=== PATIENT | male | born 1960 | race Caucasian/White ===

== ENCOUNTER 2016-12-08 20:06 | Inpatient (IN) | payer OTHER ==
--- NOTE | 2016-12-08 20:13 | PDOC ---
History of Present Illness - General History Source: Patient, Family, Old Records Exam Limitations: No Limitations - History of Present Illness Initial Comments: 12/08/16 20:26 The patient is a 56 year old male, accompanied by children, with a significant past medical history of HTN, HLD, CAD and asthma, BIBA to the emergency department with left sided weakness just prior to presenting. The patient states that he was in his normal state of health today before onset of leg weakness. The patient states that he fell 3 time secondary to his leg weakness with a brief loss of consciousness. The patient notes that since his loss of consciousness he has been unable to lift his left arm. The patient has had a few alcoholic beverages today. <Wilder Cm - Last Filed: 12/09/16 00:55> - General History Source: Patient <Karthik Ray - Last Filed: 12/09/16 20:46> - General Stated Complaint: WEAKNESS Time Seen by Provider: 12/08/16 20:13 NIH Stroke Scale - Last Known Well Date/Time & Onset Date Last Known Well: 12/08/16 Time Last Known Well: 20:00 - Initial Evaluation Level of consciousness: Alert Ask patient the month and their age: Answers both correctly Ask patient to open & close eyes; make fist and let go: Obeys both correctly Best gaze (horizontal eye movement): Normal Visual field testing: No visual field loss Facial paresis (Show teeth/raise eyebrows/close eyes tight): Minor paralysis ( flattened nasolabial fold, asymmetry on smiling) Motor Function: Left Arm: No movement Motor Function: Right Arm: Normal (extends arm 90 (or 45) degrees for 10 seconds without drift Motor Function: Left Leg: Normal (extends leg 30 degrees for 5 seconds without drift) Motor Function: Right Leg: Normal (extends leg 30 degrees for 5 seconds without drift) Limb Ataxia: Present in one limb Sensory(Use pinprick test arms,legs,trunk,face/side to side): Normal Best language (Describe picture, name items, read sentences): No Aphasia Dysarthria (read several words): Normal articulation Extinction and Inattention: No abnormality - Total Score NIH Stroke Scale Score: 6 <Karthik Ray - Last Filed: 12/09/16 20:46> tPA Exclusion Checklist 0-3hr - Time Elapsed Date last known well: 12/08/16 Time last known well: 20:00 Elaspsed time: 1 Day(s) and 0 Hour(s) and 46 Minutes - Exclusion Criteria 0-3hr SBP greater than 185 or DBP greater than 110mmHg despite tx: No Recent IC/spinal surgery,head trauma or stroke w/in last 3mo: No Hx of previous IC hemorrhage, IC neoplasm, AVM or aneurysm: No Active internal bleeding: No Blding diathesis(low plt ct, inc PTT,INR>1.7 or use of NOAC): No Symptoms suggest subarachnoid hemorrhage: No CT demonstrates multilobar infarct(>1/3 cerebral hemiphere): No Arterial puncture at noncompressible site in previous 7 days: No Blood glucose concentration less than 50mg/dL (2.7mmol/L): No - Relative Exclusion Criteria 0-3h Life expectancy <1yr/severe co-morbid illness/[employer] on admit: No : No Patient/family refused: No Rapid improvement: Yes Stroke severity too mild: No Recent acute CO (w/in previous 3 months): No Seizure at onset with postictal residual neuro impairments: No Major surgery or serious trauma w/in previous 14 days: No Recent GI or hemorrhage (w/in previous 21 days): No <Karthik Ray - Last Filed: 12/09/16 20:46> Past History <Wilder Cm - Last Filed: 12/09/16 00:55> - Past Medical History Asthma: Yes Hypercholesterolemia: Yes - Surgical History Appendectomy: Yes - Psycho/Social/Smoking Cessation Hx Suicidal Ideation: No Smoking History: Current every day smoker Number of Cigarettes Smoked Daily: 20 'Breaking Loose' booklet given: 03/27/15 Hx Alcohol Use: Yes (SOCIAL) Drug/Substance Use Hx: No Substance Use Type: None <Karthik Ray - Last Filed: 12/09/16 20:46> - Past Medical History Allergies/Adverse Reactions: Allergies Allergy/AdvReac Type Severity Reaction Status Date / Time shellfish derived Allergy Vomiting Verified 12/08/16 20:37 SEAFOOD AdvReac Vomiting Uncoded 12/08/16 20:37 Home Medications: Ambulatory Orders NK [No Known Home Medication] 12/08/16 Review of Systems - Review of Systems Able to Perform ROS?: Yes Comments:: 12/08/16 20:27 CONSTITUTIONAL: Absent: fever, chills, diaphoresis, loss of appetite HEENT: Absent: rhinorrhea, nasal congestion, throat pain, throat swelling, difficulty swallowing, mouth swelling, ear pain, eye pain, visual Changes CARDIOVASCULAR: Absent: chest pain, syncope, palpitations, irregular heart rate, lightheadedness , peripheral edema RESPIRATORY: Absent: cough, shortness of breath, dyspnea with exertion, orthopnea, wheezing, stridor, hemoptysis GASTROINTESTINAL: Absent: abdominal pain, abdominal distension, nausea, vomiting, diarrhea, constipation, melena, hematochezia GENITOURINARY: Absent: dysuria, frequency, urgency, hesitancy, hematuria, flank pain, genital pain MUSCULOSKELETAL: Present: Inability to lift left arm Absent: myalgia, arthralgia, joint swelling SKIN: Absent: rash, itching, pallor HEMATOLOGIC/IMMUNOLOGIC: Absent: easy bleeding, easy bruising, lymphadenopathy, frequent infections ENDOCRINE: Absent: unexplained weight gain, unexplained weight loss, heat intolerance, cold intolerance NEUROLOGIC: Present: Loss of consciousness , leg weakness. Absent: headache, dizziness, bladder or bowel incontinence PSYCHIATRIC: Absent: anxiety, depression, suicidal or homicidal ideation, hallucinations. <Wilder Cm - Last Filed: 12/09/16 00:55> *Physical Exam - Vital Signs Last Vital Signs Temp Pulse Resp BP Pulse Ox 102 H 18 162/87 97 12/08/16 20:11 12/08/16 20:11 12/08/16 20:11 12/08/16 20:11 - Physical Exam Comments: 12/08/16 20:27 GENERAL: Well developed, well nourished. Awake and alert. In no acute distress. HEENT: (+) Atraumatic. PERRLA, EOMI. No conjunctival pallor. Sclerae are non-icteric. Moist mucous membranes. Oropharynx is clear.Left sided facial droop NECK: Supple. Full ROM. No JVD. Carotid pulses 2+ and symmetric, without bruits. No thyromegaly. No lymphadenopathy. CARDIOVASCULAR: Regular rate and rhythm. No murmurs, rubs, or gallops. Distal pulses are 2+ and symmetric. PULMONARY: No evidence of respiratory distress. Lungs clear to auscultation bilaterally. No wheezing, rales or rhonchi. ABDOMINAL: Soft. Non-tender. Non-distended. No rebound or guarding. No organomegaly. Normoactive bowel sounds. MUSCULOSKELETAL Normal range of motion at all joints. No bony deformities or tenderness. No CVA tenderness. EXTREMITIES: No cyanosis. No clubbing. No edema. No calf tenderness. SKIN: Warm and dry. Normal capillary refill. No rashes. No jaundice. NEUROLOGICAL: (+) Alert, awake, appropriate. Left facial droop, left upper extremity hemiplegia PSYCHIATRIC: Cooperative. Good eye contact. Appropriate mood and affect. <Wilder Cm - Last Filed: 12/09/16 00:55> Heart Score/ECG Review - ECG Impressions Comment:: 12/08/16 20:44 Sinus Tachycardia. Possible left atrial enlargement. Borderline ECG. <Wilder Cm - Last Filed: 12/09/16 00:55> ED Treatment Course - LABORATORY CBC & Chemistry Diagram: 12/08/16 20:13 12/08/16 20:30 - RADIOLOGY Radiograph Interpretation: 12/08/16 21:05 Referring Physician: Karthik Rae The finding of possible cortical edema in the right parietal lobe was discussed with Dr. Ray at 8 :40 PM December 08, 2016. THIS DOCUMENT HAS BEEN ELECTRONICALLY SIGNED Courtney Luong MD 12/08/2016 20:46 KEL [place]. Please call Imaging Asset Protection Detective [phone] ([phone]) with questions. PREVIOUS REPORT: Referring Physician : Karthik Ray Patient Name: Wallace Rae THIS IS A PRELIMINARY REPORT FROM [facility] EXAM: CT head without contrast IMAGES: 136 DATE OF SERVICE: 2016-12-08 20:18:53.0 HISTORY:Rule out CVA, TIA syncopal episode with subsequent left upper extremity weakness and left facial droop. COMPARISON: None. FINDINGS: 1. Visualization of detail in portions of the brain is limited by motion artifact. 2. It is unclear whether or not the appearance of a focus of cortical edema in the right parietal lobe is real or is secondary to artifact. There is no evidence of intracranial hemorrhage or significant mass effect. 2. The ventricles are normal size. 3. The visualized portions of the orbits, paranasal and mastoid sinuses are notable for partial opacification of the right mastoid sinus, complete opacification of mastoid sinus and middle ear and moderate bilateral ethmoid sinus mucosal thickening. The finding of possible cortical edema in the right parietal lobe was discussed with Dr. Ray at 8:40 PM December 08, 2016. THIS DOCUMENT HAS BEEN ELECTRONICALLY SIGNED Courtney Luong MD 12/08/2016 20:46 EST MGerald Please call Imaging Asset Protection Detective [phone] ([phone]) with questions. End of Report Content Siebel Crm Developer: ([email or web address]) Report Date : 12/08/2016 20:18:00 Report Status: Preliminary Begin of Report Content Referring Physician: Karthik Ray Patient Name: Wallace Rae THIS IS A PRELIMINARY REPORT FROM [facility] EXAM: CT head without contrast IMAGES: 136 DATE OF SERVICE: 2016-12-08 20:18 :53.0 HISTORY:Rule out CVA, TIA syncopal episode with subsequent left upper extremity weakness and left facial droop. COMPARISON: None. FINDINGS: 1. Visualization of detail in portions of the brain is limited by motion artifact. 2. It is unclear whether or not the appearance of a focus of cortical edema in the right parietal lobe is real or is secondary to artifact. There is no evidence of intracranial hemorrhage or significant mass effect. 2. The ventricles are normal size. 3. The visualized portions of the orbits, paranasal and mastoid sinuses are notable for partial opacification of the right mastoid sinus, complete opacification of mastoid sinus and middle ear and moderate bilateral ethmoid sinus mucosal thickening. The finding of possible cortical edema in the right parietal lobe was discussed with Dr. Ray at 8:40 PM December 08, 2016. THIS DOCUMENT HAS BEEN ELECTRONICALLY SIGNED Courtney Luong MD 12/08/2016 20:46 EST 12/09/16 00:55 EXAM DATE AND TIME: 2016-12-08 23:25:22.0 REASON FOR EXAM: Weakness rule out stroke COMPARISON: CT brain December 08, 2016 at 8:22 PM FINDINGS: The suspected infarct is not visible on CT at this time. Infarct less than 6 hours old may not be detectable. There is no hemorrhage. No mass. No shift or herniation. Osseous structures are intact. Again note is made of opacification of left mastoid air cells, probably granulation tissue but check to make sure there is no inflammation/tenderness in this area. THIS DOCUMENT HAS BEEN ELECTRONICALLY SIGNED Waldemar Chandra MD 12/08/2016 23:46 EST <Wilder Cm - Last Filed: 12/09/16 00:55> - LABORATORY CBC & Chemistry Diagram: 12/08/16 20:13 12/08/16 20:30 <Karthik Ray - Last Filed: 12/09/16 20:46> Medical Decision Making - Medical Decision Making 12/08/16 20:46 Patient is now able to move his left upper extremity. 12/08/16 20:[address] Henry placed. Awaiting call back. Dr. Jo called into ED and requested a consult from Dr. Downey. Dr. Segura is maori liaison adviser. Dr. Segura Called into the ED and said he will come see the patient. 12/08/16 22:53 Patient's left facial droop and left upper extremity weakness has presented again 12/08/16 22:54 Dr. Segura call connect after patient's symptoms present again. Case and plan discussed. <Wilder Cm - Last Filed: 12/09/16 00:55> - Medical Decision Making 12/08/16 21:[address] Segura covering for Dr. Downey. Pt is not a TPA candidate. Stated also that pt should only receive Aspirin at this time and be admitted for further evaluation. 12/09/16 00:09 Dr. Segura present to evaluate pt. Symptoms of left side facial droop and LUE hemiplegia return and became more pronounced. Pt started Cardene drip. 12/09/16 01:55 Pt symptoms improved on Cardene drip. BP better controlled. CTA of brain and neck are negative for vascular dissection. Pt going to ICU 12/09/16 20:46 Dr. Ray: The scribe's documentation has been prepared under my direction and personally reviewed by me in its entirery. I confirm that the note above accurately reflects all work, treatment, procedures, and medical decision making performed by me. <Karthik Ray - Last Filed: 12/09/16 20:46> *DC/Admit/Observation/Transfer - Attestations Scribe Attestion: 12/08/16 20:27 Documentation prepared by Wilder Cm, acting as medical secretary receptionist for Karthik Ray DO. <Wilder Cm - Last Filed: 12/09/16 00:55> - Discharge Dispostion Admit: Yes <Karthik Ray - Last Filed: 12/09/16 20:46> Diagnosis at time of Disposition: CAD (coronary artery disease), Malignant hypertension TIA (transient ischemic attack) Qualifiers: Transient cerebral ischemia type: unspecified Qualified Code(s): G45.9 - Transient cerebral ischemic attack, unspecified Syncope Qualifiers: Encounter type: initial encounter - Discharge Dispostion Condition at time of disposition: Guarded
[2016-12-08] MEDS: SODIUM CHLORIDE 1,000 ML IV SCH (20:37)
[2016-12-08 20:43] LABS: BASOPHIL 0.8 % (0-2.0); EOSINOPHIL 1.9 % (0-4.5); MCH 29.9 pg (25.7-33.7); MCHC 33.8 g/dl (32.0-35.9); MEAN CELL VOLUME 88.5 fl (80-96); NEUTROPHILS 73.2 % (42.8-82.8); PLATELET COUNT 240 K/MM3 (134-434); RDW 14.3 % (11.9-15.9); WHITE BLOOD COUNT 9.2 K/mm3 (4.0-10.0)
[2016-12-08 20:56] LABS: INR 1.12 (0.82-1.09); PROTHROMBIN TIME (PATIENT) 12.3 SEC (9.98-11.88)
[2016-12-08 21:06] LABS: ALBUMIN 3.8 g/dl (3.4-5.0); ANION GAP 10 (8-16); BILIRUBIN,TOTAL 0.5 mg/dL (0.2-1.0); CHOLESTEROL 211 mg/dL (50-200); CO2 24 mmol/L (21-32); CREATININE 1.3 mg/dL (0.7-1.3); GLUCOSE,RANDOM 110 mg/dL (74-106); LDL CHOLESTEROL (ONLY SJRH) 139 mg/dL (5-100); SGOT/AST 27 U/L (15-37); SGPT/ALT 36 U/L (12-78)
[2016-12-08 21:07] LABS: ALK PHOS 61 U/L (45-117); TROPONIN I < 0.02 ng/ml (0.00-0.05)
[2016-12-08] MEDS ORDERED: ASPIRIN 81 MG CHEWABLE TABLETS PO ONE (21:25)
[2016-12-08] MEDS ORDERED: ASPIRIN 81 MG CHEWABLE TABLETS ONE (22:20)
[2016-12-08] MEDS ORDERED: niCARdipine HCL 25 MG/10 ML AMPUL IVPB ONE (23:00)
[2016-12-08] MEDS ORDERED: NICARDIPINE 25 MG in DEXTROSE 5%-WATER - 240 ML IVPB SCH (23:00)
[2016-12-08] MEDS ORDERED: D5-1/2NS+20 MEQ KCL - 1,000 ML IV SCH (23:45)
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
[2016-12-09 00:40] LABS: URINE APPEARANCE CLEAR; URINE BILIRUBIN NEGATIVE (NEGATIVE); URINE COLOR STRAW; URINE GLUCOSE (UA) NEGATIVE (NEGATIVE); URINE KETONE NEGATIVE (NEGATIVE); URINE LEUK ESTERASE NEGATIVE (NEGATIVE); URINE NITRITE NEGATIVE (NEGATIVE); URINE PROTEIN NEGATIVE (NEGATIVE); URINE UROBILINOGEN NEGATIVE E.U./dl (0.2-1.0)
[2016-12-09 00:44] LABS: URINE BLOOD 1+ (NEGATIVE)
[2016-12-09] MEDS ORDERED: levETIRAcetam 500 MG/5 ML INJECTION VIAL IVPB ONE ×2 (01:14→01:20)
[2016-12-09 01:19] LABS: URINE MUCUS RARE; URINE RBC 2 /hpf (0-3); URINE WBC 1 /hpf (3-5)
[2016-12-09 03:34] VITALS: BMI 27.6
--- NOTE | 2016-12-09 04:16 | CONSULT ---
Consult Consult Specialty:: PULM / CCM Referred by:: Sandro Reason for Consultation:: TIA - History of Present Illness Chief Complaint: Syncope History of Present Illness: Mr. Rae is a 56 y/o man w/ HTN, HLD, CAD and asthma, BIBA to the ED w/ L sided weakness. [Pt of Dr. Bijan Obando, [address] here in [place] )] but loss to f/u & well known non-compliant a/p pt's son @ the bed side. The patient states that he was in his USOH today & then sudden onset of leg weakness. The patient states that this caused him to fall & he reports + LOC. In ED pt notable for L sided facial droop, super high BP w/ SBP > 210. NCHCT negative. Pattern of Neuro deficit most c/w anterior circulation TIAs. Neuro consulted. BP normalized w/ Cardene gtt. All S & S resolved. Pt can go to [facility] for continued testing. 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: Alzheimer's, CVA, Dementia Cardio/Vascular: Yes: HTN, Hyperlipdemia Pulmonary: Yes: Asthma Gastrointestinal: No: Cancer, Constipation, GI Bleed Renal/: No: Renal Failure, Cancer Heme/Onc: No: Cancer Psych: No: Anxiety, Depression Musculoskeletal: No: Chronic low back pain Rheumatology: No: Gout, Rheumatoid Arthritis ENT: No: Allergic Rhinitis Endocrine: No: Diabetes Mellitus - Past Surgical History Past Surgical History: Yes: None - Alcohol/Substance Use Hx Alcohol Use: Yes (SOCIAL) - Smoking History Smoking history: Current every day smoker Have you smoked in the past 12 months: No Aproximately how many cigarettes per day: 20 - Social History Usual Living Arrangement: With Spouse ADL: Independent Occupation: Disabled History of Recent Travel: No Home Medications - Allergies Allergies/Adverse Reactions: Allergies Allergy/AdvReac Type Severity Reaction Status Date / Time shellfish derived Allergy Vomiting Verified 12/08/16 20:37 SEAFOOD AdvReac Vomiting Uncoded 12/08/16 20:37 - Home Medications Home Medications: Ambulatory Orders NK [No Known Home Medication] 12/08/16 Family Disease History - Family Disease History Family History: Denies Review of Systems - Review of Systems Constitutional: reports: No Symptoms Eyes: reports: No Symptoms HENT: reports: No Symptoms Neck: reports: No Symptoms Cardiovascular: reports: No Symptoms Respiratory: reports: No Symptoms Gastrointestinal: reports: No Symptoms Genitourinary: reports: No Symptoms Breasts: reports: No Symptoms Reported Musculoskeletal: reports: No Symptoms Integumentary: reports: No Symptoms Neurological: reports: Change in LOC, Numbness, Parasthesia, Syncope, Unsteady Gait, Weakness Endocrine: reports: No Symptoms Hematology/Lymphatic: reports: No Symptoms Psychiatric: reports: No Symptoms Pain Intensity: 0 Physical Exam Vital Signs: Vital Signs Temperature 98.5 F 12/09/16 03:18 Pulse Rate 93 H 12/09/16 03:18 Respiratory Rate 20 12/09/16 03:18 Blood Pressure 124/86 12/09/16 03:18 O2 Sat by Pulse Oximetry (%) 100 12/09/16 04:03 Constitutional: Yes: Well Nourished, No Distress, Calm Eyes: Yes: WNL, Conjunctiva Clear, EOM Intact HENT: Yes: WNL, Atraumatic, Normocephalic Neck: Yes: WNL, Supple, Other Cardiovascular: Yes: WNL, Regular Rate and Rhythm Respiratory: Yes: WNL, Regular, CTA Bilaterally Gastrointestinal: Yes: WNL, Normal Bowel Sounds, Soft ...Rectal Exam: Yes: Deferred Renal/: Yes: WNL Breast(s): Yes: WNL Musculoskeletal: Yes: WNL Extremities: Yes: Delayed Capillary Refill Edema: No Peripheral Pulses WNL: Yes Integumentary: Yes: WNL Neurological: Yes: WNL, Alert, Oriented ...Motor Strength: WNL Psychiatric: Yes: WNL, Alert, Oriented Labs: CBC, BMP 12/08/16 20:13 12/08/16 20:30 Laboratory Results - last 24 hr 12/08/16 12/08/16 12/08/16 20:13 20:30 20:30 WBC 9.2 RBC 5.20 Hgb 15.6 Hct 46.0 MCV 88.5 MCHC 33.8 RDW 14.3 Plt Count 240 MPV 8.0 Neutrophils % 73.2 Lymphocytes % 17.4 D Monocytes % 6.7 Eosinophils % 1.9 Basophils % 0.8 INR 1.12 Sodium 140 Potassium 4.0 Chloride 106 Carbon Dioxide 24 Anion Gap 10 BUN 17 Creatinine 1.3 D Creat Clearance w eGFR 56.70 Random Glucose 110 H Calcium 9.0 Total Bilirubin 0.5 D AST 27 D ALT 36 Alkaline Phosphatase 61 Creatine Kinase 226 D Creatine Kinase Index Y CK-MB (CK-2) < 1.000 CK-MB (CK-2) Rel Index Troponin I < 0.02 Total Protein 7.0 Albumin 3.8 Triglycerides 346 H Cholesterol 211 H Total LDL Cholesterol 139 H HDL Cholesterol 30 L Urine Color Urine Appearance Urine pH Urine Protein Urine Glucose (UA) Urine Ketones Urine Blood Urine Nitrite Urine Bilirubin Urine Urobilinogen Ur Leukocyte Esterase Urine RBC Urine WBC Ur Epithelial Cells Urine Mucus Blood Type Antibody Screen 12/08/16 12/08/16 12/09/16 20:30 20:30 00:10 WBC RBC Hgb Hct MCV MCHC RDW Plt Count MPV Neutrophils % Lymphocytes % Monocytes % Eosinophils % Basophils % INR Sodium Potassium Chloride Carbon Dioxide Anion Gap BUN Creatinine Creat Clearance w eGFR Random Glucose Calcium Total Bilirubin AST ALT Alkaline Phosphatase Creatine Kinase Creatine Kinase Index CK-MB (CK-2) CK-MB (CK-2) Rel Index Cancelled Troponin I Total Protein Albumin Triglycerides Cholesterol Total LDL Cholesterol HDL Cholesterol Urine Color Straw Urine Appearance Clear Urine pH 6.0 Urine Protein Negative Urine Glucose (UA) Negative Urine Ketones Negative Urine Blood 1+ H Urine Nitrite Negative Urine Bilirubin Negative Urine Urobilinogen Negative Ur Leukocyte Esterase Negative Urine RBC 2 Urine WBC 1 Ur Epithelial Cells Rare Urine Mucus Rare Blood Type O NEGATIVE Antibody Screen Negative Imaging - Results Cat Scan: Report Reviewed (12/08/16 21:05 Referring Physician: Karthik Rae The finding of possible cortical edema in the right parietal lobe was discussed with Dr. Ray at 8:40 PM December 08, 2016. THIS DOCUMENT HAS BEEN ELECTRONICALLY SIGNED Courtney Luong MD 12/08/2016 20:46 EST MCandace. Please call Imaging Supervisor [facility] [employer] [phone] with questions. PREVIOUS REPORT: Referring Physician: Karthik Ray Patient Name: Wallace Rae THIS IS A PRELIMINARY REPORT FROM IMAGING CARDIOLOGY TECH EXAM: CT head without contrast IMAGES: 136 DATE OF SERVICE: 2016-12-08 20:18:53.0 HISTORY:Rule out CVA, TIA syncopal episode with subsequent left upper extremity weakness and left facial droop. COMPARISON: None. FINDINGS: 1. Visualization of detail in portions of the brain is limited by motion artifact. 2. It is unclear whether or not the appearance of a focus of cortical edema in the right parietal lobe is real or is secondary to artifact. There is no evidence of intracranial hemorrhage or significant mass effect. 2. The ventricles are normal size. 3. The visualized portions of the orbits, paranasal and mastoid sinuses are notable for partial opacification of the right mastoid sinus, complete opacification of mastoid sinus and middle ear and moderate bilateral ethmoid sinus mucosal thickening. The finding of possible cortical edema in the right parietal lobe was discussed with Dr. Ray at 8:40 PM December 08, 2016. THIS DOCUMENT HAS BEEN ELECTRONICALLY SIGNED Courtney Luong MD 12/08/2016 20:46 EST M.D. Please call Imaging Supervisor [facility] [employer] [phone] with questions. ======= End of Report Content Scrap Crane Operator: ( [email or web address]) Report Date: 12/08/2016 20:18:00 Report Status: Preliminary ======= Begin of Report Content Referring Physician: Karthik Ray Patient Name: Wallace Rae THIS IS A PRELIMINARY REPORT FROM IMAGING CARDIOLOGY TECH EXAM: CT head without contrast IMAGES: 136 DATE OF SERVICE: 2016-12-08 20:18:53.0 HISTORY:Rule out CVA, TIA syncopal episode with subsequent left upper extremity weakness and left facial droop. COMPARISON : None. FINDINGS: 1. Visualization of detail in portions of the brain is limited by motion artifact. 2. It is unclear whether or not the appearance of a focus of cortical edema in the right parietal lobe is real or is secondary to artifact. There is no evidence of intracranial hemorrhage or significant mass effect. 2. The ventricles are normal size. 3. The visualized portions of the orbits, paranasal and mastoid sinuses are notable for partial opacification of the right mastoid sinus, complete opacification of mastoid sinus and middle ear and moderate bilateral ethmoid sinus mucosal thickening. The finding of possible cortical edema in the right parietal lobe was discussed with Dr. Ray at 8:40 PM December 08, 2016. THIS DOCUMENT HAS BEEN ELECTRONICALLY SIGNED Courtney Luong MD 12/08/2016 20:46 EST 12/09/16 00:55 EXAM DATE AND TIME: 2016-12-08 23:25:22.0 REASON FOR EXAM: Weakness rule out stroke COMPARISON: CT brain December 08, 2016 at 8:22 PM FINDINGS: The suspected infarct is not visible on CT at this time. Infarct less than 6 hours old may not be detectable. There is no hemorrhage. No mass. No shift or herniation. Osseous structures are intact. Again note is made of opacification of left mastoid air cells, probably granulation tissue but check to make sure there is no inflammation/tenderness in this area. THIS DOCUMENT HAS BEEN ELECTRONICALLY SIGNED Waldemar Chandra MD 12/08/2016 23:46 EST) EKG: Image Reviewed (S-Tach @ 108 w/o ectopy. Normal axis. Possible left atrial enlargement, No ST or T-wave aberrations, QTc = 471ms (No Acute Process My Read) .) Problem List - Problems (1) TIA (transient ischemic attack) Code(s): G45.9 - TRANSIENT CEREBRAL ISCHEMIC ATTACK, UNSPECIFIED Qualifiers: Transient cerebral ischemia type: unspecified Qualified Code(s): G45.9 - Transient cerebral ischemic attack, unspecified (2) Smoker Code(s): F17.200 - NICOTINE DEPENDENCE, UNSPECIFIED, UNCOMPLICATED (3) Malignant hypertension Code(s): I10 - ESSENTIAL (PRIMARY) HYPERTENSION (4) HLD (hyperlipidemia) Code(s): E78.5 - HYPERLIPIDEMIA, UNSPECIFIED (5) Asthma Code(s): J45.909 - UNSPECIFIED ASTHMA, UNCOMPLICATED Assessment/Plan ASSESS: This is a 56 y/o man 30 Pck-Yr Smoker, Asthma, HTN, & HLD who presents now w/ malignant HTN & TIAs. PLAN: -FiO2 for an SpO2 > 92% -Nebs -IS -Convert Cardene gtt to PO's -BP GOAL 180/90 -Cont ASA -CTA Head -MRI/MRA Brain -TCDs -Can cont Keppra a/p NEURO -Pg NEURO for any recurrence -SQH -Pepcid -Can Transfer Pt to Tele This patient has multiple comorbidities including but NOT limited to: 30 Pck-Yr Smoker, HTN, & HLD. From a clinical and treatment plan perspective, considering this pts comorbidities as well as his new TIAs, this pt satisfies the definition of serious condition. Thus, this pt requires inpatient admission and based on these facts I do certify that this pt is expected to receive hospital services for at least 2 midnights. Thank you for this interesting consult. Christiano damian, [id number] PULM / CCM Critical Care Time/MDM Note Total Critical Care Time: 38 Critical Care Statement: The care of this patient involved high complexity decision making to prevent further life threatening deterioration of the patient 's condition and/or to evalute & treat vital organ system(s) failure or risk of failure.
[2016-12-09] MEDS ORDERED: NIFEdipine E.R. 30 MG TABLET (FP) PO SCH ×3 (04:30)
[2016-12-09] MEDS: SODIUM CHLORIDE 1,000 ML IV SCH (05:17)
[2016-12-09] MEDS ORDERED: ALBUTEROL SO4 0.083% IH SOL 2.5 MG/3 ML VIAL.NEB. NEB SCH (06:00)
--- NOTE | 2016-12-09 08:55 | PN ---
Physical Exam: SUBJECTIVE: 56 year old male pmh HTN, HLD, CAD, asthma presented to ED w/ sudden L-sided weakness of both upper and lower extremities. Reports having fallen and loss of consciousness. ED noted L sided facial droop + a systolic BP of 210. Pt currently feels better, denies weakness, chest pain, palpitations, SOB, n/v. Pt is asking for food. OBJECTIVE: Vital Signs Period Temp Pulse Resp BP Sys/Bernstein Pulse Ox Last 24 Hr 98.2 F-98.5 F 82-109 15-27 106-210/53-188 96-100 GENERAL: The patient is awake, alert, and fully oriented, in no acute distress. HEAD: Normal with no signs of trauma. EYES: PERRL, extraocular movements intact, sclera anicteric, conjunctiva clear. No ptosis. ENT: Ears normal, nares patent, oropharynx clear without exudates, moist mucous membranes. NECK: Trachea midline, full range of motion, supple. LUNGS: Breath sounds equal, clear to auscultation bilaterally, no wheezes, no crackles, no accessory muscle use. HEART: Regular rate and rhythm, S1, S2 without murmur, rub or gallop. ABDOMEN: Soft, nontender, nondistended, normoactive bowel sounds, no guarding, no rebound, no hepatosplenomegaly, no masses. EXTREMITIES: 2+ pulses, warm, well-perfused, no edema. NEUROLOGICAL: Cranial nerves II through XII grossly intact. Normal speech, gait not observed. Sensation intact in face + extremities, [id number] test normal, muscle strength 5/5 in upper and lower extremities b/l PSYCH: Normal mood, normal affect. SKIN: Warm, dry, normal turgor, no rashes or lesions noted CBC,CMP WBC 9.2 K/mm3 (4.0-10.0) 12/08/16 20:13 RBC 5.20 M/mm3 (4.00-5.60) 12/08/16 20:13 Hgb 15.6 GM/dL (11.7-16.9) 12/08/16 20:13 Hct 46.0 % (35.4-49) 12/08/16 20:13 MCV 88.5 fl (80-96) 12/08/16 20:13 MCHC 33.8 g/dl (32.0-35.9) 12/08/16 20:13 RDW 14.3 % (11.9-15.9) 12/08/16 20:13 Plt Count 240 K/MM3 (134-434) 12/08/16 20:13 MPV 8.0 fl (7.5-11.1) 12/08/16 20:13 Neutrophils % 73.2 % (42.8-82.8) 12/08/16 20:13 Lymphocytes % 17.4 % (8-40) D 12/08/16 20:13 Monocytes % 6.7 % (3.8-10.2) 12/08/16 20:13 Eosinophils % 1.9 % (0-4.5) 12/08/16 20:13 Basophils % 0.8 % (0-2.0) 12/08/16 20:13 Sodium 140 mmol/L (136-145) 12/08/16 20:30 Potassium 4.0 mmol/L (3.5-5.1) 12/08/16 20:30 Chloride 106 mmol/L (98-107) 12/08/16 20:30 Carbon Dioxide 24 mmol/L (21-32) 12/08/16 20:30 Anion Gap 10 (8-16) 12/08/16 20:30 BUN 17 mg/dL (7-18) 12/08/16 20:30 Creatinine 1.3 mg/dL (0.7-1.3) D 12/08/16 20:30 Creat Clearance w eGFR 56.70 (>60) 12/08/16 20:30 Random Glucose 110 mg/dL (74-106) H 12/08/16 20:30 Calcium 9.0 mg/dL (8.5-10.1) 12/08/16 20:30 Total Bilirubin 0.5 mg/dL (0.2-1.0) D 12/08/16 20:30 AST 27 U/L (15-37) D 12/08/16 20:30 ALT 36 U/L (12-78) 12/08/16 20:30 Alkaline Phosphatase 61 U/L (45-117) 12/08/16 20:30 Creatine Kinase 226 IU/L (39-308) D 12/08/16 20:30 Creatine Kinase Index Y 12/08/16 20:30 CK-MB (CK-2) < 1.000 ng/ml (0.5-3.6) 12/08/16 20:30 CK-MB (CK-2) Rel Index Cancelled 12/08/16 20:30 Troponin I < 0.02 ng/ml (0.00-0.05) 12/08/16 20:30 Total Protein 7.0 g/dl (6.4-8.2) 12/08/16 20:30 Albumin 3.8 g/dl (3.4-5.0) 12/08/16 20:30 Triglycerides 346 mg/dL (35-160) H 12/08/16 20:30 Cholesterol 211 mg/dL (50-200) H 12/08/16 20:30 Total LDL Cholesterol 139 mg/dL (5-100) H 12/08/16 20:30 HDL Cholesterol 30 mg/dL (40-60) L 12/08/16 20:30 Abnormal Lab Results 12/08/16 12/09/16 20:30 00:10 Random Glucose 110 H Triglycerides 346 H Cholesterol 211 H Total LDL Cholesterol 139 H HDL Cholesterol 30 L Urine Blood 1+ H Active Medications Generic Name Dose Route Start Last Admin Trade Name Freq PRN Reason Stop Dose Admin Albuterol Sulfate 1 amp 12/09/16 06:00 12/09/16 06:12 Ventolin 0.083% Nebulizer Soln - NEB 1 amp QIDR VAN Administration Heparin Sodium (Porcine) 5,000 unit 12/09/16 10:00 Heparin - SQ BID VAN Sodium Chloride 1,000 mls @ 42 mls/hr 12/08/16 20:15 12/09/16 05:17 Normal Saline - IV 42 mls/hr ASDIR VAN Administration Famotidine/Sodium Chloride 50 mls @ 100 mls/hr 12/09/16 10:00 Pepcid 20 Mg Premixed Ivpb - IVPB BID VAN Metoprolol Tartrate 25 mg 12/09/16 10:00 Lopressor - PO BID VAN Nifedipine 30 mg 12/09/16 04:30 12/09/16 04:33 Procardia Xl - PO 30 mg DAILY VAN Administration Imaging: Head/Neck CTA (12/09): no evidence of occlusive disease Carotid Doppler (12/09): evidence of atherosclerotic disease without stenosis ASSESSMENT/PLAN: 56 year old male s/p TIA. Patient is stable and is currently improved in neurological status. Neuro: pt is neurologically intact -swallow study performed- no abnormalities noted -regular diet scheduled -suggest hold BP meds to allow mildly elevated BP in the setting of TIA -Urine tox screen negative Cardio: pt has elevated cholesterol, LDL, and triglycerides -start atorvastatin 40mg BID -f/u cardiac echo -carotid doppler showed evidence of mild atherosclerotic disease, but negative for stenosis -hold morning BP meds today in setting of TIA, resume Pulmonary: -albuterol NEB PRN Prophylaxis: -cont. Heparin 5000U FEN: -Regular diet Dispo: -transfer to tele Problem List - Problems (1) TIA (transient ischemic attack) Code(s): G45.9 - TRANSIENT CEREBRAL ISCHEMIC ATTACK, UNSPECIFIED Qualifiers: Transient cerebral ischemia type: unspecified Qualified Code(s): G45.9 - Transient cerebral ischemic attack, unspecified Visit type - Emergency Visit Emergency Visit: No - New Patient This patient is new to me today: Yes Date on this admission: 12/09/16 - Critical Care Critical Care patient: Yes Total Critical Care Time (in minutes): 60 Critical Care Statement: The care of this patient involved high complexity decision making to prevent further life threatening deterioration of the patient 's condition and/or to evalute & treat vital organ system(s) failure or risk of failure.
[2016-12-09] MEDS ORDERED: SODIUM CHLORIDE 1,000 ML IV SCH (09:55)
--- NOTE | 2016-12-09 09:58 | CONSULT ---
Admitting History and Physical - Primary Care Physician PCP: Harleen Julio - Admission History of Present Illness: 56 y/o man w/ HTN, HLD, CAD and asthma, BIBA to the ED w/ L sided weakness. Family reports non-compliant with medication, smokes a pack daily, and drinks a six-pack of beer twice weekly. He had a sudden onset of slurred speech, left side paresis, fell x 3 and did lose consciousness, per family. Onset of TIA reported at 7:30 and again at 12 am. 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, CVA, Dementia Cardiovascular: Yes: HTN, Hyperlipdemia Pulmonary: Yes: Asthma Gastrointestinal: No: Cancer, Constipation, GI Bleed Renal/: No: Renal Failure, Cancer Heme/Onc: No: Cancer Psych: No: Anxiety, Depression Musculoskeletal: No: Chronic low back pain Rheumatology: No: Gout, Rheumatoid Arthritis ENT: No: Allergic Rhinitis Endocrine: No: Diabetes Mellitus - Past Surgical History Past Surgical History: Yes: None - Smoking History Smoking history: Current every day smoker Have you smoked in the past 12 months: No Aproximately how many cigarettes per day: 20 - Alcohol/Substance Use Hx Alcohol Use: Yes (SOCIAL) - Social History ADL: Independent Occupation: Disabled History of Recent Travel: No History - Admission Reason For Visit: [facility]NCOPE - Diagnostics X-ray: Report Reviewed CT Scan: Report Reviewed - General Mental Status: Alert and Oriented, Awake and Alert, Able to Follow Commands Attention: Intact Ability to Follow Directions: Excellent Head/Neck Control: WFL - Hearing Hearing: Normal Speech Evaluation - Communication Primary Language: ENGLISH Secondary Language: FAROESE (functional) Communication: Yes: Within Normal Limits Oral Expression Ability: Yes: No Impairment - Speech Production Apraxia: No Able to Make Needs Known: Yes: WNL Intelligibility: Yes: WNL - Speech Characteristics Voice Loudness: Normal Voice Pitch: Yes: Normal Voice Phonatory-based Quality: Yes: Normal Speech Pattern: Normal Speech Clarity: < 100% Nasal Resonance: Normal Articulation: Yes: Precise Rate of Speech: Intact - Language/Auditory Comprehension Follows: Yes: 2 Stage Simple Commands Observation: Able to respond to yes/no queries: Yes, Yes/No Confusion: No, Comprehends Conversational Speech: Yes - Language/Verbal Expression Able to Respond to Simple Queries: Yes: WNL Able to Communicate Wants and Needs: Yes: WNL Functional Communication Status: Yes: WNL - Memory/Perception emt intermediate Memory: Yes: WNL Short Term Memory: Yes: WNL - Swallow Evaluation/Bedside Assessment Current Nutritional Intake: Dysphagia Pureed, Thin Liquids Oral Secretions: Yes: WFL Dentition: Yes: Missing Teeth Facial Symmetry at Rest: Symmetrical Facial Symmetry on Retraction: Symmetrical Against Resistance Opening: Normal Against Resistance Closing: Normal Pucker Lips: Normal Smile: Normal Lingual Movement: Normal Lingual Speed of Movement: Normal Lingual Movement Strgth Against Opposition: Normal Lingual Movement Characteristics: Normal Velopharyngeal Movement: Normal Laryngeal Elevation: WFL Laryngeal Movement: Able to Palpate Rate of Intake: WFL Bolus Size: WFL Labial Seal: WFL Chewing: WFL Oral Prep Time: WFL A-P Transit: WFL Pocketing: None Timing of Swallow: WFL Coughing/Throat Clear: No Change in Voice: No Recommendations - Speech Evaluation, Impression/Plan Impression: Sudden onset of left sided weakness,slurred speech x 2, with spontaneous recovery of symptoms. - Dysphagia Impressions/Plan Swallowing Skills: [facility] Dysphagia Impressions: No Impairment *Silent aspiration: cannot be R/O at bedside Dysphagia Treatment Plan: Other (Hold PO if neurologic changes noted.) Recommendations: Other (Educated pt on smoking/ETOH reduction and risk factors, and compliance with medication.) - Recommendations Diet Consistency: Regular Medication Administration: Whole with water Liquids: Thin Liquids
[2016-12-09] MEDS ORDERED: ASPIRIN COATED 81 MG TABLET.EC PO SCH (10:00)
[2016-12-09] MEDS ORDERED: METOPROLOL TARTRATE 25 MG TABLET (FP) PO SCH ×2 (10:00)
[2016-12-09] MEDS ORDERED: FAMOTIDINE 20 MG/50 ML IVPB 50 ML IVPB SCH (10:00)
[2016-12-09] MEDS ORDERED: CLOPIDOGREL BISULFATE 75 MG TABLET (FP) PO SCH (10:00)
[2016-12-09] MEDS ORDERED: HEPARIN NA (PORCINE) 5,000 UNITS/ML 1ML VIAL SQ SCH (10:00)
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
[2016-12-09] MEDS: HEPARIN NA (PORCINE) 5,000 UNITS/ML 1ML VIAL SQ SCH ×2 (10:24→21:17)
[2016-12-09] MEDS: METOPROLOL TARTRATE 25 MG TABLET (FP) PO SCH (10:24)
[2016-12-09] MEDS: FAMOTIDINE 20 MG/50 ML IVPB 50 ML IVPB SCH ×2 (10:24→21:17)
[2016-12-09] MEDS: NIFEdipine E.R. 30 MG TABLET (FP) PO SCH (10:25)
--- NOTE | 2016-12-09 10:44 | EKG ---
Test Reason : Blood Pressure : / mmHG Vent. Rate : 108 BPM Atrial Rate : 108 BPM P-R Int : 168 ms QRS Dur : 094 ms QT Int : 352 ms P-R-T Axes : 044 048 035 degrees QTc Int : 471 ms SINUS TACHYCARDIA POSSIBLE LEFT ATRIAL ENLARGEMENT BORDERLINE ECG WHEN COMPARED WITH ECG OF 27-MAR-2015 17:33, NO SIGNIFICANT CHANGE WAS FOUND Confirmed by KIMBERLEE ARSHAD MD ([id number]) on 12/09/2016 10:43:49 AM Referred By: Confirmed By:KIMBERLEE ARSHAD MD
[2016-12-09 11:46] LABS: URINE MARIJUANA THC NEGATIVE ng/ml (CUTOFF=50)
[2016-12-09] MEDS: ALBUTEROL SO4 0.083% IH SOL 2.5 MG/3 ML VIAL.NEB. NEB SCH ×2 (11:56→19:03)
[2016-12-09] MEDS: ASPIRIN COATED 81 MG TABLET.EC PO SCH (13:14)
--- NOTE | 2016-12-09 15:45 | CON.CARD ---
Consult Consult Specialty:: Cardiology Referred by:: Dr Ray Reason for Consultation:: htn - History of Present Illness Chief Complaint: leg weakness History of Present Illness: 56m history of htn, chol, smoker who presented 12/08/16 with bilateral leg and left facial weakness, ct scan without focal new cva, bp very elevated on admission. Symptoms resolved. CTA negative. Now without complaints. At baseline he has no cp, sob, orthopnea, pnd or edema. Exercise tolerance is excellent. Echo 12/09/16 nlef, severe MR Jacek IV ordered but bp control achieved with po medications. 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, CVA, Dementia Cardio/Vascular: Yes: HTN, Hyperlipdemia Pulmonary: Yes: Asthma Gastrointestinal: No: Cancer, Constipation, GI Bleed Renal/: No: Renal Failure, Cancer Psych: No: Anxiety, Depression Musculoskeletal: No: Chronic low back pain Rheumatology: No: Gout, Rheumatoid Arthritis ENT: No: Allergic Rhinitis Endocrine: No: Diabetes Mellitus - Past Surgical History Past Surgical History: Yes: None - Alcohol/Substance Use Hx Alcohol Use: Yes (SOCIAL) - Smoking History Smoking history: Current every day smoker Have you smoked in the past 12 months: No Aproximately how many cigarettes per day: 20 - Social History Usual Living Arrangement: With Spouse ADL: Independent Occupation: Disabled History of Recent Travel: No Home Medications - Allergies Allergies/Adverse Reactions: Allergies Allergy/AdvReac Type Severity Reaction Status Date / Time shellfish derived Allergy Vomiting Verified 12/08/16 20:37 SEAFOOD AdvReac Vomiting Uncoded 12/08/16 20:37 - Home Medications Home Medications: Ambulatory Orders NK [No Known Home Medication] 12/08/16 Review of Systems - Review of Systems Constitutional: reports: No Symptoms Eyes: reports: No Symptoms HENT: reports: No Symptoms Neck: reports: No Symptoms Cardiovascular: reports: No Symptoms Vital Signs: Vital Signs Temperature 97.5 F L 12/09/16 14:00 Pulse Rate 81 12/09/16 14:00 Respiratory Rate 16 12/09/16 14:00 Blood Pressure 101/87 12/09/16 14:00 O2 Sat by Pulse Oximetry (%) 100 12/09/16 08:00 Constitutional: Yes: No Distress, Calm Eyes: Yes: Conjunctiva Clear, EOM Intact HENT: Yes: Atraumatic, Normocephalic Neck: Yes: Supple, Trachea Midline Respiratory: Yes: CTA Bilaterally Gastrointestinal: Yes: Normal Bowel Sounds, Soft Renal/: Yes: WNL Cardiovascular: Yes: Regular Rate and Rhythm JVD: No Carotid Bruit: No PMI: Non-Displaced Heart Sounds: Yes: S1, S2 Musculoskeletal: Yes: WNL Extremities: Yes: WNL Edema: No Peripheral Pulses WNL: Yes - Other Data Labs, Other Data: INR, PTT INR 1.12 (0.82-1.09) 12/08/16 20:30 Imaging - Results X-ray: Report Reviewed (zoya) Cat Scan: Report Reviewed (cta negative) EKG: Report Reviewed (stach nssttw changes) Problem List - Problems (1) Malignant hypertension Assessment/Plan: likely the cause of the episode. bp improved on po medications. continue neuro workup. Code(s): I10 - ESSENTIAL (PRIMARY) HYPERTENSION (2) Mitral regurgitation Assessment/Plan: Severe MR on echo, no murmur on auscultation. No symptoms, will follow over time. No plans for workup at this point. Code(s): I34.0 - NONRHEUMATIC MITRAL (VALVE) INSUFFICIENCY Qualifiers: Cardiac valve disease etiology: nonrheumatic Qualified Code(s): I34.0 - Nonrheumatic mitral (valve) insufficiency
--- NOTE | 2016-12-09 16:02 | HP ---
Admitting History and Physical - Primary Care Physician PCP: Harleen Julio - Admission Chief Complaint: NEW CVA History of Present Illness: The patient is a 56 year old male, accompanied by children, with a significant past medical history of HTN, HLD, CAD and asthma, BIBA to the emergency department with left sided weakness just prior to presenting. The patient states that he was in his normal state of health today before onset of leg weakness. The patient states that he fell 3 time secondary to his leg weakness with a brief loss of consciousness. The patient notes that since his loss of consciousness he has been unable to lift his left arm. The patient has had a few alcoholic beverages today. 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, CVA, Dementia Cardiovascular: Yes: HTN, Hyperlipdemia Pulmonary: Yes: Asthma Gastrointestinal: No: Cancer, Constipation, GI Bleed Renal/: No: Renal Failure, Cancer Heme/Onc: No: Cancer Psych: No: Anxiety, Depression Musculoskeletal: No: Chronic low back pain Rheumatology: No: Gout, Rheumatoid Arthritis ENT: No: Allergic Rhinitis Endocrine: No: Diabetes Mellitus - Past Surgical History Past Surgical History: Yes: None - Smoking History Smoking history: Current every day smoker Have you smoked in the past 12 months: No Aproximately how many cigarettes per day: 20 - Alcohol/Substance Use Hx Alcohol Use: Yes (SOCIAL) - Social History ADL: Independent Occupation: Disabled History of Recent Travel: No Home Medications - Allergies Allergies/Adverse Reactions: Allergies Allergy/AdvReac Type Severity Reaction Status Date / Time shellfish derived Allergy Vomiting Verified 12/08/16 20:37 SEAFOOD AdvReac Vomiting Uncoded 12/08/16 20:37 - Home Medications Home Medications: Ambulatory Orders NK [No Known Home Medication] 12/08/16 Review of Systems - Review of Systems Constitutional: reports: Weakness Eyes: reports: No Symptoms HENT: reports: No Symptoms Neck: reports: No Symptoms Cardiovascular: reports: No Symptoms Respiratory: reports: No Symptoms Gastrointestinal: reports: No Symptoms Genitourinary: reports: No Symptoms Musculoskeletal: reports: Muscle Weakness Integumentary: reports: No Symptoms Neurological: reports: Parasthesia, Unsteady Gait, Weakness Endocrine: denies: No Symptoms Hematology/Lymphatic: reports: No Symptoms Psychiatric: reports: No Symptoms Physical Examination Vital Signs: Vital Signs Temperature 97.8 F 12/09/16 15:00 Pulse Rate 87 12/09/16 15:00 Respiratory Rate 16 12/09/16 15:00 Blood Pressure 114/83 12/09/16 15:00 O2 Sat by Pulse Oximetry (%) 100 12/09/16 08:00 Constitutional: Yes: Mild Distress Eyes: Yes: WNL HENT: Yes: WNL Neck: Yes: WNL Cardiovascular: Yes: WNL Respiratory: Yes: WNL Gastrointestinal: Yes: WNL Renal/: Yes: WNL Musculoskeletal: Yes: Muscle Weakness Extremities: Yes: WNL Edema: No Peripheral Pulses WNL: Yes Integumentary: Yes: WNL Wound/Incision: Yes: Clean/Dry Neurological: Yes: Weakness ...Motor Strength: LLE, RLE Psychiatric: Yes: WNL Imaging - Results Cat Scan: Report Reviewed Ultrasound: Report Reviewed Problem List - Problems (1) CAD (coronary artery disease) Code(s): I25.10 - ATHSCL HEART DISEASE OF [place] CORONARY ARTERY W/O ANG PCTRS (2) Mitral regurgitation Code(s): I34.0 - NONRHEUMATIC MITRAL (VALVE) INSUFFICIENCY Qualifiers: Cardiac valve disease etiology: nonrheumatic Qualified Code(s): I34.0 - Nonrheumatic mitral (valve) insufficiency (3) Syncope Code(s): R55 - SYNCOPE AND COLLAPSE Qualifiers: Encounter type: initial encounter (4) TIA (transient ischemic attack) Code(s): G45.9 - TRANSIENT CEREBRAL ISCHEMIC ATTACK, UNSPECIFIED Qualifiers: Transient cerebral ischemia type: unspecified Qualified Code(s): G45.9 - Transient cerebral ischemic attack, unspecified (5) Asthma Code(s): J45.909 - UNSPECIFIED ASTHMA, UNCOMPLICATED (6) HLD (hyperlipidemia) Code(s): E78.5 - HYPERLIPIDEMIA, UNSPECIFIED Assessment/Plan CVA WORKUP NEUROLOGY EVAL ICU CARE LIPID PROFILE STATIN THERAPY ASA CARDIO WORKUP
[2016-12-09] MEDS ORDERED: ATORVASTATIN CA 40 MG TABLET (FP) PO SCH ×2 (22:00)
[2016-12-10] MEDS: ALBUTEROL SO4 0.083% IH SOL 2.5 MG/3 ML VIAL.NEB. NEB SCH ×2 (00:05→06:24)
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
[2016-12-10] MEDS: HEPARIN NA (PORCINE) 5,000 UNITS/ML 1ML VIAL SQ SCH (09:24)
[2016-12-10] MEDS: ASPIRIN COATED 81 MG TABLET.EC PO SCH (09:24)
[2016-12-10] MEDS: METOPROLOL TARTRATE 25 MG TABLET (FP) PO SCH (09:24)
[2016-12-10] MEDS: FAMOTIDINE 20 MG/50 ML IVPB 50 ML IVPB SCH (09:24)
[2016-12-10] MEDS: NIFEdipine E.R. 30 MG TABLET (FP) PO SCH (09:24)
[2016-12-10 09:43] VITALS: PULSE 90
[2016-12-10 10:28] VITALS: BP 160/90; TEMP 98
--- NOTE | 2016-12-10 11:14 | DS ---
Physical Examination Vital Signs: Vital Signs Temperature 98 F 12/10/16 10:00 Pulse Rate 90 12/10/16 10:00 Respiratory Rate 18 12/10/16 10:00 Blood Pressure 160/90 12/10/16 10:00 O2 Sat by Pulse Oximetry (%) 96 12/10/16 09:43 Constitutional: Yes: No Distress Eyes: Yes: WNL HENT: Yes: WNL Neck: Yes: WNL Cardiovascular: Yes: WNL Respiratory: Yes: WNL Gastrointestinal: Yes: WNL Renal/: Yes: WNL Musculoskeletal: Yes: WNL Extremities: Yes: WNL Edema: No Peripheral Pulses WNL: Yes Integumentary: Yes: WNL Wound/Incision: Yes: Clean/Dry Neurological: Yes: WNL ...Motor Strength: WNL Psychiatric: Yes: WNL Discharge Summary Reason For Visit: SYNCOPE Current Active Problems CAD (coronary artery disease) (Acute) Malignant hypertension (Acute) Mitral regurgitation (Acute) Syncope (Acute) TIA (transient ischemic attack) (Acute) Procedures: Principal: HEAD AND NECK CT Other Procedures: LABS Hospital Course: ADMITTED STARTED ON ASA AND STSATIN THERAPY, MONITOR PATIENT NO DEFECITS, F/U OUTPATIENT, DIETARY CHANGES Condition: Guarded - Instructions Diet, Activity, Other Instructions: LOW FAT/SALT/ADA SEE DR STONER IN 1 WEEK Disposition: HOME - Home Medications Comprehensive Discharge Medication List: Ambulatory Orders NK [No Known Home Medication] 12/08/16
== END 2016-12-10 12:12 | disposition home or self-care (01) | DRG 52 ==
LOC: JER 20:06 → JERBED 21:26 → JICU 12-09 03:48 → J4W 12-09 17:03
PROVIDERS: ADMIT Family Medicine; ATTEND Family Medicine
DX: I67.4 Hypertensive encephalopathy (principal); R20.9 Unspecified disturbances of skin sensation; R55 Syncope and collapse; E78.5 Hyperlipidemia, unspecified; F17.210 Nicotine dependence, cigarettes, uncomplicated; I25.10 Atherosclerotic heart disease of native coronary artery without angina pectoris; J45.909 Unspecified asthma, uncomplicated; G81.94 Hemiplegia, unspecified affecting left nondominant side; I34.0 Nonrheumatic mitral (valve) insufficiency
CPT/HCPCS: 36415; 70450-TC; 70496-TC; 70498-TC; 71010-TC; 73590-TC-LT; 80053; 80307; 81003; 81015; 82465; 82550; 82553; 83718; 83721; 84478; 84484; 85025; 85610; 86850; 86900; 86901; 93005; 93010; 93306-TC; 93880-TC; 94640; 97116-GP; 97161-GP; 99285-25; J1644

== ENCOUNTER 2024-01-19 15:22 | Emergency (ER) | payer OTHER ==
[2024-01-19 15:46] VITALS: BP 125/83; PULSE 98; RESP 18; TEMP 98.3; BMI 25.0
[2024-01-19] MEDS: SODIUM CHLORIDE 0.9% 500 ML INFUS.BAG IV ONE (17:21)
[2024-01-19 17:22] LABS: EOS % 1.5 % (0-4.5); HEMATOCRIT 46.4 % (35.4-49); HEMOGLOBIN 16.2 GM/dL (11.7-16.9); LYMPH % 22.2 % (8-40); MCH 30.1 pg (25.7-33.7); MCHC 34.8 g/dl (32.0-35.9); MEAN CELL VOLUME 86.4 fl (80-96); MEAN PLT VOLUME 8.5 fl (7.5-11.1); MONO % 8.6 % (3.8-10.2); NEUT % 66.7 % (42.8-82.8); PLATELET COUNT 272 10^3/uL (134-434); RBC 5.37 M/mm3 (4.00-5.60); RDW 13.8 % (11.9-15.9); WHITE BLOOD COUNT 6.5 K/mm3 (4.0-10.0)
[2024-01-19 17:46] LABS: POTASSIUM 4.8 mmol/L (3.5-5.1)
[2024-01-19 17:48] LABS: CALCIUM 9.7 mg/dL (8.5-10.1)
[2024-01-19 17:49] LABS: ALBUMIN 3.6 g/dl (3.4-5.0); BLOOD UREA NITROGEN 10.9 mg/dL (7-18)
[2024-01-19 17:51] LABS: URINE APPEARANCE CLEAR; URINE BILIRUBIN NEGATIVE (NEGATIVE); URINE COLOR YELLOW; URINE KETONE 15 mg/dl (NEGATIVE)
[2024-01-19 17:52] LABS: CREATININE 1.1 mg/dL (0.55-1.3); PH,URINE 5.5 (5.0-8.0); URINE LEUK ESTERASE NEGATIVE (NEGATIVE); URINE NITRITE NEGATIVE (NEGATIVE); URINE PROTEIN TRACE (NEGATIVE); URINE UROBILINOGEN 0.2 mg/dL (0.2-1.0)
[2024-01-19 17:54] LABS: BILIRUBIN,TOTAL 0.8 mg/dL (0.2-1); TOT PROT 6.6 g/dl (6.4-8.2)
[2024-01-19] MEDS ORDERED: metFORMIN HCL 500 MG TABLET (FP) ONE (18:06)
[2024-01-19] MEDS: metFORMIN HCL 500 MG TABLET (FP) PO ONE (18:10)
== END 2024-01-19 18:27 | disposition home or self-care (01) ==
LOC: JER 15:22
DX: E11.9 Type 2 diabetes mellitus without complications (principal); R35.0 Frequency of micturition; R39.15 Urgency of urination; R30.0 Dysuria
CPT/HCPCS: 36415; 80053; 81003; 82962; 83036; 85025; 87077; 87086; 99284-25